=== PATIENT | female | born 1995 ===

== ENCOUNTER 2019-09-30 08:04 | Emergency (ER) | payer OTHER ==
[~2019-09-30] VITALS: Ht 177.8 cm; Wt 99.8 kg
[2019-09-30] MEDS ORDERED: DICLOFENAC SODI75 MG PO (09:18)
[2019-09-30] MEDS ORDERED: AMOX-CLAV 875-1 EACH PO (09:18)
== END 2019-09-30 09:56 | disposition home or self-care (01) ==
LOC: ER 08:04
DX: H66.92 Otitis media, unspecified, left ear (principal)